=== PATIENT | female | born 2005 | race Native Hawaiian/Other Pacific Islander ===

== ENCOUNTER 2024-09-29 10:42 | Outpatient (CLI) | payer MEDICAID, SELFPAY ==
[2024-10-03 19:46] LABS: Pap Test Digital Imaging Done
== END 2024-09-29 10:43 | disposition home or self-care (01) ==
PROVIDERS: Visit Provider Nurse Practitioner Family
DX: Z12.4 Encounter for screening for malignant neoplasm of cervix (principal); Z13.6 Encounter for screening for cardiovascular disorders
CPT/HCPCS: 80061; 87624; 87625; 88141; 88142; 88175

== ENCOUNTER 2025-01-13 08:41 | Outpatient (CLI) | payer MEDICAID, SELFPAY | END 2025-01-13 08:42 | disposition home or self-care (01) | LOC: FRMREF 08:42 | PROVIDERS: PCP Nurse Practitioner Family; Visit Provider Nurse Practitioner Family | DX: R53.83 Other fatigue (principal) | CPT/HCPCS: 82728 ==